=== PATIENT | female | born 1965 | race Caucasian/White ===

== ENCOUNTER 2019-03-02 00:40 | Inpatient (IN) ==
[2019-03-02] MEDS ORDERED: D5% in Water 1,000 ML IVC PRN (02:40)
[2019-03-02] MEDS ORDERED: Dextrose Gel 15 GM/37.5 ML TUBE PO PRN ×2 (02:40)
[2019-03-02] MEDS ORDERED: *HR* Dextrose 50 % in Water (Syg) 50 ML SYRINGE IVP PRN (02:40)
[2019-03-02] MEDS: Acetaminophen 325 MG TABLET PO PRN ×2 (02:48→12:28)
[2019-03-02] MEDS ORDERED: Insulin LISPRO 300 UNITS/3 ML VIAL SQ ONE (02:52)
[2019-03-02] MEDS ORDERED: Naloxone 0.4 MG/ML INJ IVP PRN (02:55)
[2019-03-02] MEDS ORDERED: Ondansetron 4 MG/2 ML VIAL IVP PRN (03:01)
[2019-03-02] MEDS: 0.9 % Sodium Chloride 1,000 ML IVC SCH ×2 (03:13→12:29)
[2019-03-02 04:59] LABS: Hematocrit 31.9 % (35.3-44.9); Mean Corpuscular HGB Conc 34.5 g/dL (31.6-35.5); Mean Corpuscular Hemoglobin 29.9 pg (28.0-33.3); Mean Corpuscular Volume 86.7 fL (83.0-100.0); Platelet Count 165 K/mcL (140-400); Red Blood Count 3.68 M/mcL (3.82-4.97); Red Cell Distribution Width 13.3 % (11.5-14.5); White Blood Count 8.7 K/mcL (4.3-11.1)
[2019-03-02 05:06] LABS: Calcium 8.7 mg/dL (8.6-10.3); Magnesium 1.5 mg/dL (1.6-2.6); Phosphorous 2.8 mg/dL (2.7-4.5); Potassium 3.2 mEq/L (3.5-5.1)
[2019-03-02] MEDS: Insulin LISPRO 300 UNITS/3 ML VIAL SQ SCH ×4 (08:12→21:06)
[2019-03-02] MEDS ORDERED: Isovue-370 500 ML BOTTLE IVP ONE (16:45)
[2019-03-02] MEDS ORDERED: Methocarbamol 750 MG TABLET PO PRN (17:46)
[2019-03-02] MEDS ORDERED: Fluticasone Propionate Nasal 50 MCG/SPRAY BOTTLE NS PRN (17:46)
[2019-03-02] MEDS ORDERED: 0.9 % Sodium Chloride 1,000 ML IVC SCH ×2 (18:30→21:30)
[2019-03-02] MEDS: risperiDONE 1 MG TABLET PO SCH (21:03)
[2019-03-02] MEDS: Gabapentin 400 MG CAPSULE PO SCH (21:03)
[2019-03-02] MEDS: Insulin DETEMIR 100 UNIT/ML X5UNITS SQ SCH (21:04)
[2019-03-03 03:01] LABS: Basophils # 0.1 K/mcL (0.0-0.2); Basophils % 0.8 %; Eosinophils % 0.7 %; Hematocrit 32.6 % (35.3-44.9); Hemoglobin 10.9 g/dL (11.5-15.4); Immature Granulocytes % 1.2 % (0-4); Lymphocytes # 1.8 K/mcL (0.6-4.6); Lymphocytes % 29.1 %; Mean Corpuscular HGB Conc 33.4 g/dL (31.6-35.5); Mean Corpuscular Hemoglobin 30.1 pg (28.0-33.3); Mean Corpuscular Volume 90.1 fL (83.0-100.0); Mean Platelet Volume 9.5 fL (9.4-12.4); Monocytes # 0.6 K/mcL (0.0-1.3); Monocytes % 9.4 %; Neutrophils # 3.6 K/mcL (1.6-8.9); Nucleated Red Blood Cells 0.3 /100 WBC (0); Platelet Count 149 K/mcL (140-400); Red Blood Count 3.62 M/mcL (3.82-4.97); Red Cell Distribution Width 13.5 % (11.5-14.5); Segmented Neutrophils % 58.8 %
[2019-03-03 03:24] LABS: Calcium 8.6 mg/dL (8.6-10.3); Potassium 3.7 mEq/L (3.5-5.1)
[2019-03-03] MEDS: Gabapentin 400 MG CAPSULE PO SCH ×3 (08:41→20:02)
[2019-03-03] MEDS: risperiDONE 0.25 MG TABLET PO SCH (08:41)
[2019-03-03] MEDS: Furosemide 20 MG TABLET PO SCH (08:42)
[2019-03-03] MEDS: Insulin LISPRO 300 UNITS/3 ML VIAL SQ SCH ×5 (08:46→23:18)
[2019-03-03] MEDS: Insulin DETEMIR 100 UNIT/ML X5UNITS SQ SCH ×2 (08:46→23:17)
[2019-03-03] MEDS: Acetaminophen 325 MG TABLET PO PRN ×2 (08:55→20:02)
[2019-03-03] MEDS: Nitroglycerin 0.2 MG PATCH.TD24 TD SCH (11:49)
[2019-03-03] MEDS ORDERED: Albuterol 2.5 MG/3 ML NEBULIZER IH PRN (13:04)
[2019-03-03 13:26] LABS: Bilirubin,Urine Negative (Negative); Blood,Urine Negative (Negative); Clarity,Urine Clear (Clear); Color,Urine Yellow (Yellow); Glucose,Urine (UA) Normal (Normal); Ketones,Urine Negative (Negative); Leukocyte Esterase,Urine Trace (Negative); Nitrite,Urine Negative (Negative); Protein,Urine Trace mg/dL (Neg-Trace); Specific Gravity,Urine 1.015 (1.010-1.025); Urobilinogen,Urine Normal (Normal)
[2019-03-03 13:27] LABS: Bacteria,Urine Few per hpf (None-Few); Hyaline Casts,Urine None Seen per lpf (None-Few); RBC,Urine 0-3 per hpf (0-3); Squamous Epithelial Cell,Urine Many per lpf (None-Few)
[2019-03-03] MEDS: Ipratropium/Albuterol Neb 3 ML IH SCH ×3 (15:31→23:53)
[2019-03-03] MEDS: predniSONE 20 MG TABLET PO SCH (15:38)
[2019-03-03] MEDS: hydroCHLOROthiazide 25 MG TABLET PO SCH (15:38)
[2019-03-03] MEDS: Lisinopril 20 MG TABLET PO SCH (15:38)
[2019-03-03] MEDS: risperiDONE 1 MG TABLET PO SCH (17:15)
[2019-03-04] MEDS: Ipratropium/Albuterol Neb 3 ML IH SCH ×5 (03:37→19:51)
[2019-03-04 04:53] LABS: Basophils % 0.5 %; Hematocrit 32.5 % (35.3-44.9); Hemoglobin 10.7 g/dL (11.5-15.4); Lymphocytes # 1.8 K/mcL (0.6-4.6); Lymphocytes % 23.9 %; Mean Corpuscular HGB Conc 32.9 g/dL (31.6-35.5); Mean Corpuscular Hemoglobin 29.2 pg (28.0-33.3); Mean Corpuscular Volume 88.6 fL (83.0-100.0); Mean Platelet Volume 9.7 fL (9.4-12.4); Monocytes # 0.4 K/mcL (0.0-1.3); Monocytes % 5.3 %; Platelet Count 155 K/mcL (140-400); Red Blood Count 3.67 M/mcL (3.82-4.97); Red Cell Distribution Width 13.5 % (11.5-14.5); Segmented Neutrophils % 68.3 %; White Blood Count 7.3 K/mcL (4.3-11.1)
[2019-03-04 05:12] LABS: Calcium 9.2 mg/dL (8.6-10.3)
[2019-03-04] MEDS: Insulin LISPRO 300 UNITS/3 ML VIAL SQ SCH ×5 (10:38→21:58)
[2019-03-04] MEDS: Lisinopril 20 MG TABLET PO SCH (10:38)
[2019-03-04] MEDS: Gabapentin 400 MG CAPSULE PO SCH ×3 (10:39→20:52)
[2019-03-04] MEDS: predniSONE 20 MG TABLET PO SCH (10:39)
[2019-03-04] MEDS: hydroCHLOROthiazide 25 MG TABLET PO SCH (10:39)
[2019-03-04] MEDS: Furosemide 20 MG TABLET PO SCH (10:39)
[2019-03-04] MEDS: risperiDONE 0.25 MG TABLET PO SCH (10:39)
[2019-03-04] MEDS: Nitroglycerin 0.2 MG PATCH.TD24 TD SCH (10:39)
[2019-03-04 10:55] LABS: Estimated Average Glucose 229 mg/dl
[2019-03-04] MEDS ORDERED: Insulin LISPRO 300 UNITS/3 ML VIAL SQ SCH (11:30)
[2019-03-04] MEDS: Insulin DETEMIR 100 UNIT/ML X5UNITS SQ SCH (12:29)
[2019-03-04] MEDS ORDERED: *HR* Insulin Regular U-500 500 UNIT/ML SQ SCH (16:30)
[2019-03-04] MEDS: risperiDONE 1 MG TABLET PO SCH (17:36)
[2019-03-05] MEDS: Ipratropium/Albuterol Neb 3 ML IH SCH ×4 (00:18→11:08)
[2019-03-05 07:08] LABS: Hematocrit 31.8 % (35.3-44.9); Hemoglobin 10.9 g/dL (11.5-15.4); Mean Corpuscular HGB Conc 34.3 g/dL (31.6-35.5); Mean Corpuscular Hemoglobin 29.5 pg (28.0-33.3); Mean Corpuscular Volume 85.9 fL (83.0-100.0); Mean Platelet Volume 9.7 fL (9.4-12.4); Platelet Count 197 K/mcL (140-400); Red Cell Distribution Width 13.4 % (11.5-14.5)
[2019-03-05 07:30] LABS: BUN/Creatinine Ratio 21 (6-26); Blood Urea Nitrogen 23 mg/dL (6-20); Calcium 9.6 mg/dL (8.6-10.3); Carbon Dioxide 26 mEq/L (23-29); Chloride 100 mEq/L (98-107); Potassium 3.4 mEq/L (3.5-5.1); Sodium 138 mEq/L (136-145); eGFR For African Americans > 60 (> 60); eGFR For Non-African Americans 54 (> 60)
[2019-03-05] MEDS ORDERED: *HR* Insulin Regular U-500 500 UNIT/ML SQ SCH ×2 (07:30→12:00)
[2019-03-05 07:53] VITALS: BP 161/102
[2019-03-05 08:16] LABS: Glucose 193 mg/dL (70-105); Osmolality,Calculated 295 (280-300)
[2019-03-05] MEDS: Gabapentin 400 MG CAPSULE PO SCH (08:46)
[2019-03-05] MEDS: predniSONE 20 MG TABLET PO SCH (08:46)
[2019-03-05] MEDS: Furosemide 20 MG TABLET PO SCH (08:47)
[2019-03-05] MEDS: hydroCHLOROthiazide 25 MG TABLET PO SCH (08:47)
[2019-03-05] MEDS: risperiDONE 0.25 MG TABLET PO SCH (08:47)
[2019-03-05] MEDS: Lisinopril 20 MG TABLET PO SCH (08:47)
[2019-03-05] MEDS: Nitroglycerin 0.2 MG PATCH.TD24 TD SCH (08:47)
== END 2019-03-05 14:13 | disposition home or self-care (01) | DRG 140 ==
LOC: 2NENU → SUATTDRO 02:01
PROVIDERS: ADMIT Internal Medicine; ATTEND Family Medicine

== ENCOUNTER 2019-04-23 12:21 | Observation (INO) ==
[2019-04-23 13:16] LABS: Basophils # 0.1 K/mcL (0.0-0.2); Basophils % 0.7 %; Eosinophils # 0.2 K/mcL (0.0-0.6); Eosinophils % 2.4 %; Hematocrit 36.7 % (35.3-44.9); Hemoglobin 12.6 g/dL (11.5-15.4); Immature Granulocytes % 1.4 % (0-4); Lymphocytes # 2.6 K/mcL (0.6-4.6); Lymphocytes % 36.2 %; Mean Corpuscular HGB Conc 34.3 g/dL (31.6-35.5); Mean Corpuscular Hemoglobin 29.8 pg (28.0-33.3); Mean Corpuscular Volume 86.8 fL (83.0-100.0); Mean Platelet Volume 10.2 fL (9.4-12.4); Monocytes # 0.3 K/mcL (0.0-1.3); Monocytes % 4.8 %; Neutrophils # 3.9 K/mcL (1.6-8.9); Platelet Count 151 K/mcL (140-400); Red Blood Count 4.23 M/mcL (3.82-4.97); Red Cell Distribution Width 13.7 % (11.5-14.5); Segmented Neutrophils % 54.5 %; White Blood Count 7.1 K/mcL (4.3-11.1)
[2019-04-23 13:46] LABS: Albumin 4.2 g/dL (3.5-5.7); Albumin/Globulin Ratio 1.2 (1.1-2.2); Bilirubin,Direct 0.1 mg/dL (0.0-0.2); Bilirubin,Indirect 0.3 mg/dL (0.0-1.0); Bilirubin,Total 0.4 mg/dL (0.3-1.0); Calcium 9.8 mg/dL (8.6-10.3); Globulin 3.4 g/dL (2.4-3.5); Potassium 3.4 mEq/L (3.5-5.1); Total Protein 7.6 g/dL (6.4-8.9)
[2019-04-23] MEDS: 0.9 % Sodium Chloride 1,000 ML IVC SCH ×2 (14:09→15:15)
[2019-04-23 14:11] LABS: Bilirubin,Urine Negative (Negative); Blood,Urine Negative (Negative); Clarity,Urine Clear (Clear); Color,Urine Yellow (Yellow); Glucose,Urine (UA) >=1000 mg/dL (Normal); Ketones,Urine Negative (Negative); Leukocyte Esterase,Urine Negative (Negative); Nitrite,Urine Negative (Negative); PH,Urine 6.5 pH Units (5.0-8.0); Protein,Urine Negative (Neg-Trace); Specific Gravity,Urine 1.026 (1.010-1.025); Urobilinogen,Urine Normal (Normal)
[2019-04-23 14:34] LABS: VBG HCO3 28 mEq/L (21-27); VBG PCO2 53 mmHg (41-51); VBG PH 7.34 pH Units (7.32-7.42); VBG PO2 74 mmHg (25-50)
[2019-04-23 14:44] LABS: Magnesium 1.9 mg/dL (1.6-2.6)
[2019-04-23] MEDS ORDERED: Insulin Regular, Human 100 UNIT/ML SQ ONE (15:18)
[2019-04-23] MEDS ORDERED: *HR* HYDROcodone/Acet 5/325 mg TABLET PO PRN (15:35)
[2019-04-23] MEDS ORDERED: Naloxone 0.4 MG/ML INJ IVP PRN (15:35)
[2019-04-23] MEDS ORDERED: Dextrose Gel 15 GM/37.5 ML TUBE PO PRN ×2 (15:39)
[2019-04-23] MEDS ORDERED: D5% in Water 1,000 ML IVC PRN (15:39)
[2019-04-23] MEDS ORDERED: *HR* Dextrose 50 % in Water (Syg) 50 ML SYRINGE IVP PRN (15:39)
[2019-04-23] MEDS ORDERED: Fluticasone Propionate Nasal 50 MCG/SPRAY BOTTLE NS PRN (15:41)
[2019-04-23] MEDS ORDERED: Methocarbamol 750 MG TABLET PO PRN (15:41)
[2019-04-23] MEDS ORDERED: Ipratropium/Albuterol Neb 3 ML IH PRN (15:42)
[2019-04-23] MEDS: *HR* Heparin 5,000 UNIT/ML VIAL SQ SCH (17:48)
[2019-04-23] MEDS: risperiDONE 1 MG TABLET PO SCH (17:49)
[2019-04-23] MEDS: *HR* Buprenorphine HCl 8 MG TAB.SUBL SL SCH (17:49)
[2019-04-23] MEDS: Insulin LISPRO 300 UNITS/3 ML VIAL SQ SCH (17:52)
[2019-04-23] MEDS: Nitroglycerin 0.2 MG PATCH.TD24 TD SCH (19:05)
[2019-04-23 19:07] LABS: Calcium 9.1 mg/dL (8.6-10.3); Potassium 3.4 mEq/L (3.5-5.1)
[2019-04-23] MEDS: Gabapentin 400 MG CAPSULE PO SCH (20:59)
[2019-04-23] MEDS ORDERED: NON-FORMULARY MEDICATION 1 EACH EACH (Buprenorphine Hcl/Naloxone Hcl [Suboxone 8 Mg-2 Mg S SL SCH (21:00)
[2019-04-23] MEDS ORDERED: Insulin DETEMIR 100 UNIT/ML X5UNITS SQ SCH (21:00)
[2019-04-23] MEDS: 0.9 % Sodium Chloride w KCl 40 MEQ/1,000 ML MLS IVC SCH (21:38)
[2019-04-24] MEDS: *HR* Heparin 5,000 UNIT/ML VIAL SQ SCH ×2 (05:48→18:30)
[2019-04-24] MEDS: *HR* Buprenorphine HCl 8 MG TAB.SUBL SL SCH ×2 (05:48→18:30)
[2019-04-24] MEDS: FLUoxetine 20 MG CAPSULE PO SCH (07:36)
[2019-04-24] MEDS: risperiDONE 0.25 MG TABLET PO SCH (07:36)
[2019-04-24] MEDS: Gabapentin 400 MG CAPSULE PO SCH ×3 (07:36→20:05)
[2019-04-24] MEDS: Insulin LISPRO 300 UNITS/3 ML VIAL SQ SCH ×7 (07:37→16:06)
[2019-04-24] MEDS: Nitroglycerin 0.2 MG PATCH.TD24 TD SCH (07:40)
[2019-04-24] MEDS: 0.9 % Sodium Chloride w KCl 40 MEQ/1,000 ML MLS IVC SCH (07:42)
[2019-04-24 07:45] LABS: Basophils # 0.1 K/mcL (0.0-0.2); Basophils % 0.8 %; Eosinophils # 0.2 K/mcL (0.0-0.6); Eosinophils % 2.6 %; Hematocrit 32.5 % (35.3-44.9); Lymphocytes # 2.5 K/mcL (0.6-4.6); Lymphocytes % 40.2 %; Mean Corpuscular HGB Conc 33.2 g/dL (31.6-35.5); Mean Corpuscular Hemoglobin 29.6 pg (28.0-33.3); Monocytes # 0.4 K/mcL (0.0-1.3); Monocytes % 5.8 %; Neutrophils # 3.1 K/mcL (1.6-8.9); Platelet Count 146 K/mcL (140-400); Red Blood Count 3.65 M/mcL (3.82-4.97); Red Cell Distribution Width 13.9 % (11.5-14.5); Segmented Neutrophils % 49.6 %; White Blood Count 6.2 K/mcL (4.3-11.1)
[2019-04-24 07:46] LABS: Hemoglobin 10.8 g/dL (11.5-15.4)
[2019-04-24 08:01] LABS: Calcium 8.6 mg/dL (8.6-10.3); Potassium 3.7 mEq/L (3.5-5.1)
[2019-04-24 08:02] LABS: Magnesium 1.9 mg/dL (1.6-2.6); Phosphorous 3.4 mg/dL (2.7-4.5)
[2019-04-24] MEDS ORDERED: Insulin DETEMIR 100 UNIT/ML X5UNITS SQ SCH ×2 (09:00→21:00)
[2019-04-24] MEDS: hydrALAZINE 25 MG TABLET PO SCH ×2 (11:50→16:05)
[2019-04-24] MEDS: risperiDONE 1 MG TABLET PO SCH (18:30)
[2019-04-24] MEDS ORDERED: Acetaminophen 325 MG TABLET PO ONE (20:46)
[2019-04-24] MEDS: traZODone 50 MG TABLET PO PRN (20:58)
[2019-04-25] MEDS: hydrALAZINE 25 MG TABLET PO SCH ×3 (00:04→14:36)
[2019-04-25] MEDS: *HR* Heparin 5,000 UNIT/ML VIAL SQ SCH ×2 (05:35→16:21)
[2019-04-25] MEDS: *HR* Buprenorphine HCl 8 MG TAB.SUBL SL SCH ×2 (05:35→16:21)
[2019-04-25 05:59] LABS: Calcium 8.8 mg/dL (8.6-10.3); Magnesium 2.1 mg/dL (1.6-2.6); Phosphorous 2.6 mg/dL (2.7-4.5); Potassium 3.7 mEq/L (3.5-5.1)
[2019-04-25] MEDS: Nitroglycerin 0.2 MG PATCH.TD24 TD SCH (08:18)
[2019-04-25] MEDS: risperiDONE 0.25 MG TABLET PO SCH (08:18)
[2019-04-25] MEDS: Gabapentin 400 MG CAPSULE PO SCH ×3 (08:19→20:06)
[2019-04-25] MEDS: Insulin LISPRO 300 UNITS/3 ML VIAL SQ SCH ×6 (08:19→16:22)
[2019-04-25] MEDS: FLUoxetine 20 MG CAPSULE PO SCH (08:19)
[2019-04-25] MEDS: Insulin DETEMIR 100 UNIT/ML X5UNITS SQ SCH ×2 (09:00→20:07)
[2019-04-25] MEDS: Acetaminophen 325 MG TABLET PO PRN (14:36)
[2019-04-25] MEDS: risperiDONE 1 MG TABLET PO SCH (16:21)
[2019-04-25] MEDS: traZODone 50 MG TABLET PO PRN (20:15)
[2019-04-26] MEDS: hydrALAZINE 25 MG TABLET PO SCH ×4 (00:10→23:25)
[2019-04-26 05:54] LABS: Calcium 8.5 mg/dL (8.6-10.3); Magnesium 1.9 mg/dL (1.6-2.6); Phosphorous 3.2 mg/dL (2.7-4.5); Potassium 3.8 mEq/L (3.5-5.1)
[2019-04-26] MEDS: *HR* Buprenorphine HCl 8 MG TAB.SUBL SL SCH ×2 (05:59→17:42)
[2019-04-26] MEDS: *HR* Heparin 5,000 UNIT/ML VIAL SQ SCH ×2 (05:59→17:42)
[2019-04-26] MEDS: FLUoxetine 20 MG CAPSULE PO SCH (07:26)
[2019-04-26] MEDS: Loratadine 10 MG TABLET PO SCH (07:26)
[2019-04-26] MEDS: Gabapentin 400 MG CAPSULE PO SCH ×3 (07:27→20:20)
[2019-04-26] MEDS: Cholecalciferol (D-3) 1,000 UNIT (25MCG) TABLET PO SCH (07:27)
[2019-04-26] MEDS: risperiDONE 0.25 MG TABLET PO SCH (07:27)
[2019-04-26] MEDS: Insulin DETEMIR 100 UNIT/ML X5UNITS SQ SCH (07:28)
[2019-04-26] MEDS: Insulin LISPRO 300 UNITS/3 ML VIAL SQ SCH ×10 (07:28→23:26)
[2019-04-26] MEDS: Nitroglycerin 0.2 MG PATCH.TD24 TD SCH (07:28)
[2019-04-26] MEDS: Lisinopril 20 MG TABLET PO SCH (09:27)
[2019-04-26] MEDS: Furosemide 20 MG TABLET PO SCH (11:20)
[2019-04-26] MEDS: Acetaminophen 325 MG TABLET PO PRN ×2 (12:46→19:50)
[2019-04-26] MEDS: risperiDONE 1 MG TABLET PO SCH (17:42)
[2019-04-26] MEDS: traZODone 50 MG TABLET PO PRN (19:49)
[2019-04-26] MEDS ORDERED: Insulin DETEMIR 100 UNIT/ML X5UNITS SQ SCH (21:00)
[2019-04-27] MEDS: Insulin LISPRO 300 UNITS/3 ML VIAL SQ SCH ×3 (04:22→09:09)
[2019-04-27 04:46] LABS: Calcium 8.8 mg/dL (8.6-10.3); Phosphorous 3.2 mg/dL (2.7-4.5); Potassium 3.6 mEq/L (3.5-5.1)
[2019-04-27] MEDS: *HR* Buprenorphine HCl 8 MG TAB.SUBL SL SCH (06:19)
[2019-04-27] MEDS: *HR* Heparin 5,000 UNIT/ML VIAL SQ SCH (06:19)
[2019-04-27 07:26] VITALS: BP 141/85
[2019-04-27] MEDS: Loratadine 10 MG TABLET PO SCH (09:10)
[2019-04-27] MEDS: Gabapentin 400 MG CAPSULE PO SCH (09:10)
[2019-04-27] MEDS: Cholecalciferol (D-3) 1,000 UNIT (25MCG) TABLET PO SCH (09:11)
[2019-04-27] MEDS: Lisinopril 20 MG TABLET PO SCH (09:11)
[2019-04-27] MEDS: FLUoxetine 20 MG CAPSULE PO SCH (09:11)
[2019-04-27] MEDS: Furosemide 20 MG TABLET PO SCH (09:11)
[2019-04-27] MEDS: hydrALAZINE 25 MG TABLET PO SCH (09:11)
[2019-04-27] MEDS: risperiDONE 0.25 MG TABLET PO SCH (09:12)
[2019-04-27] MEDS: Nitroglycerin 0.2 MG PATCH.TD24 TD SCH (09:12)
== END 2019-04-27 14:16 | disposition home or self-care (01) ==
LOC: EMEROOARM 12:21 → 3BNU 12:21 → SUATTDRO 16:27 → 3BNU 17:13
PROVIDERS: ADMIT Internal Medicine; ATTEND Internal Medicine

== ENCOUNTER 2019-08-14 05:46 | Observation (INO) ==
[2019-08-14] MEDS ORDERED: Naloxone 0.4 MG/ML INJ IVP PRN (07:47)
[2019-08-14] MEDS ORDERED: Ondansetron 4 MG/2 ML VIAL IVP PRN (07:47)
[2019-08-14 09:00] LABS: VBG HCO3 23 mEq/L (21-27); VBG PCO2 45 mmHg (41-51); VBG PH 7.32 pH Units (7.32-7.42); VBG PO2 79 mmHg (25-50)
[2019-08-14 09:18] LABS: BUN/Creatinine Ratio 17 (6-26); Blood Urea Nitrogen 51 mg/dL (6-20); Calcium 8.1 mg/dL (8.6-10.3); Carbon Dioxide 20 mEq/L (23-29); Chloride 100 mEq/L (98-107); Glucose 332 mg/dL (70-105); Magnesium 1.7 mg/dL (1.6-2.6); Osmolality,Calculated 305 (280-300); Phosphorous 3.8 mg/dL (2.7-4.5); Potassium 3.4 mEq/L (3.5-5.1); Sodium 134 mEq/L (136-145); Troponin I < 0.03 ng/mL (< 0.04); eGFR For African Americans 19 (> 60); eGFR For Non-African Americans 16 (> 60)
[2019-08-14] MEDS: 0.9 % Sodium Chloride 1,000 ML IVC SCH ×2 (10:12→22:32)
[2019-08-14] MEDS ORDERED: *HR* Dextrose 50 % in Water (Syg) 50 ML SYRINGE IVP PRN (10:40)
[2019-08-14] MEDS ORDERED: D5% in Water 1,000 ML IVC PRN (10:40)
[2019-08-14] MEDS ORDERED: Dextrose Gel 15 GM/37.5 ML TUBE PO PRN ×2 (10:40)
[2019-08-14] MEDS ORDERED: traZODone 50 MG TABLET PO PRN (11:05)
[2019-08-14 11:33] LABS: Bilirubin,Urine Negative (Negative); Blood,Urine Negative (Negative); Clarity,Urine Clear (Clear); Color,Urine Yellow (Yellow); Glucose,Urine (UA) 250 mg/dL (Normal); Ketones,Urine Negative (Negative); Leukocyte Esterase,Urine Negative (Negative); Nitrite,Urine Negative (Negative); Protein,Urine Trace mg/dL (Neg-Trace); Specific Gravity,Urine 1.017 (1.010-1.025); Urobilinogen,Urine Normal (Normal)
[2019-08-14] MEDS: Gabapentin 300 MG CAPSULE PO SCH (11:58)
[2019-08-14] MEDS: Insulin LISPRO 300 UNITS/3 ML VIAL SQ SCH ×4 (11:58→17:20)
[2019-08-14] MEDS: Insulin DETEMIR 100 UNIT/ML X5UNITS SQ SCH ×2 (11:59→21:11)
[2019-08-14] MEDS: Acetaminophen 325 MG TABLET PO PRN ×2 (15:59→22:10)
[2019-08-14] MEDS: *HR* Heparin 5,000 UNIT/ML VIAL SQ SCH (17:19)
[2019-08-14] MEDS: risperiDONE 1 MG TABLET PO SCH (21:11)
[2019-08-14] MEDS: Buprenorphine Hcl/Naloxone Hcl [Suboxone 8 Mg-2 Mg S SL SCH (21:13)
[2019-08-15] MEDS: *HR* Heparin 5,000 UNIT/ML VIAL SQ SCH (04:17)
[2019-08-15] MEDS: Insulin DETEMIR 100 UNIT/ML X5UNITS SQ SCH (07:14)
[2019-08-15] MEDS: Gabapentin 300 MG CAPSULE PO SCH (07:14)
[2019-08-15] MEDS: Acetaminophen 325 MG TABLET PO PRN (07:14)
[2019-08-15] MEDS: risperiDONE 1 MG TABLET PO SCH (07:14)
[2019-08-15] MEDS: Insulin LISPRO 300 UNITS/3 ML VIAL SQ SCH ×4 (07:14→11:53)
[2019-08-15] MEDS ORDERED: FLUoxetine 20 MG CAPSULE PO SCH (09:00)
[2019-08-15 09:28] LABS: Basophils % 0.6 %; Eosinophils # 0.1 K/mcL (0.0-0.6); Eosinophils % 2.5 %; Hematocrit 29.6 % (35.3-44.9); Hemoglobin 9.6 g/dL (11.5-15.4); Lymphocytes # 1.8 K/mcL (0.6-4.6); Lymphocytes % 38.3 %; Mean Corpuscular HGB Conc 32.4 g/dL (31.6-35.5); Mean Corpuscular Hemoglobin 29.4 pg (28.0-33.3); Mean Corpuscular Volume 90.8 fL (83.0-100.0); Mean Platelet Volume 10.3 fL (9.4-12.4); Monocytes # 0.3 K/mcL (0.0-1.3); Monocytes % 6.7 %; Neutrophils # 2.4 K/mcL (1.6-8.9); Platelet Count 162 K/mcL (140-400); Red Blood Count 3.26 M/mcL (3.82-4.97); Red Cell Distribution Width 13.6 % (11.5-14.5); Segmented Neutrophils % 50.9 %; White Blood Count 4.8 K/mcL (4.3-11.1)
[2019-08-15 09:41] LABS: Calcium 8.6 mg/dL (8.6-10.3); Potassium 3.5 mEq/L (3.5-5.1)
[2019-08-15] MEDS ORDERED: Tiotropium 18 MCG inhalation IH SCH (10:00)
[2019-08-15 11:41] VITALS: BP 120/80
[2019-08-15] MEDS: Buprenorphine Hcl/Naloxone Hcl [Suboxone 8 Mg-2 Mg S SL SCH (11:54)
== END 2019-08-15 14:13 | disposition home or self-care (01) ==
LOC: 2ANU → SUATTDRO 06:59
PROVIDERS: ADMIT Family Medicine; ATTEND Internal Medicine

== ENCOUNTER 2019-10-22 22:25 | Observation (INO) ==
[2019-10-23] MEDS ORDERED: Naloxone 0.4 MG/ML INJ IVP PRN (00:52)
[2019-10-23] MEDS ORDERED: Ondansetron 4 MG/2 ML VIAL IVP PRN (00:52)
[2019-10-23] MEDS ORDERED: Ringers Solution, Lactated 1,000 ML IVC SCH (01:00)
[2019-10-23] MEDS ORDERED: *HR* OxyCODONE/APAP 5/325 TABLET PO PRN (01:22)
[2019-10-23] MEDS ORDERED: *HR* OxyCODONE/APAP 10/325 TABLET PO PRN (01:22)
[2019-10-23] MEDS ORDERED: *HR* Dextrose 50 % in Water (Vial) 50 ML VIAL IVP PRN (02:46)
[2019-10-23] MEDS ORDERED: Dextrose Gel 15 GM/37.5 ML TUBE PO PRN ×2 (02:46)
[2019-10-23] MEDS ORDERED: D5% in Water 1,000 ML IVC PRN (02:46)
[2019-10-23] MEDS: Insulin LISPRO 300 UNITS/3 ML VIAL SQ SCH ×2 (05:59→13:32)
[2019-10-23] MEDS ORDERED: Cefepime HCl 1,000 MG in Water for inj. (sterile) 10 ML IVP SCH (06:00)
[2019-10-23] MEDS ORDERED: Furosemide 20 MG TABLET PO SCH (09:00)
[2019-10-23 10:46] VITALS: BP 150/91
[2019-10-23 10:50] LABS: Bacteria,Urine Few per hpf (None-Few); Bilirubin,Urine Negative (Negative); Blood,Urine Negative (Negative); Clarity,Urine Clear (Clear); Color,Urine Light-Yellow (Yellow); Glucose,Urine (UA) 500 mg/dL (Normal); Ketones,Urine Negative (Negative); Leukocyte Esterase,Urine Negative (Negative); Nitrite,Urine Negative (Negative); Protein,Urine Trace mg/dL (Neg-Trace); RBC,Urine 0-3 per hpf (0-3); Specific Gravity,Urine 1.015 (1.010-1.025); Urobilinogen,Urine Normal (Normal); WBC,Urine 0-3 per hpf (0-3)
[2019-10-23 11:38] LABS: Basophils # 0.1 K/mcL (0.0-0.2); Eosinophils # 0.6 K/mcL (0.0-0.6); Eosinophils % 7.2 %; Hematocrit 33.7 % (35.3-44.9); Hemoglobin 11.2 g/dL (11.5-15.4); Immature Granulocytes % 3.4 % (0-4); Lymphocytes # 2.2 K/mcL (0.6-4.6); Lymphocytes % 26.5 %; Mean Corpuscular HGB Conc 33.2 g/dL (31.6-35.5); Mean Corpuscular Hemoglobin 28.7 pg (28.0-33.3); Mean Corpuscular Volume 86.4 fL (83.0-100.0); Mean Platelet Volume 9.8 fL (9.4-12.4); Monocytes # 0.5 K/mcL (0.0-1.3); Monocytes % 6.2 %; Neutrophils # 4.6 K/mcL (1.6-8.9); Platelet Count 160 K/mcL (140-400); Red Cell Distribution Width 12.8 % (11.5-14.5); Segmented Neutrophils % 55.7 %; White Blood Count 8.3 K/mcL (4.3-11.1)
[2019-10-23 11:47] LABS: Prothrombin Time 11.5 Seconds (9.4-12.1)
[2019-10-23 11:57] LABS: Alanine Aminotransferase 15 Units/L (7-52); Albumin 3.8 g/dL (3.5-5.7); Albumin/Globulin Ratio 1.1 (1.1-2.2); Alkaline Phosphatase 117 Units/L (34-104); Aspartate Amino Transferase 20 Units/L (13-39); BUN/Creatinine Ratio 17 (6-26); Bilirubin,Total 0.3 mg/dL (0.3-1.0); Blood Urea Nitrogen 25 mg/dL (6-20); Calcium 9.2 mg/dL (8.6-10.3); Carbon Dioxide 26 mEq/L (23-29); Chloride 100 mEq/L (98-107); Chol/HDL Ratio 6.7 (0-4.9); Cholesterol 214 mg/dL (< 200); Globulin 3.4 g/dL (2.4-3.5); Glucose 300 mg/dL (70-105); HDL Cholesterol 32 mg/dL (40-59); Magnesium 1.8 mg/dL (1.6-2.6); Osmolality,Calculated 298 (280-300); Phosphorous 2.5 mg/dL (2.7-4.5); Potassium 3.6 mEq/L (3.5-5.1); Sodium 136 mEq/L (136-145); Total Protein 7.2 g/dL (6.4-8.9); Triglycerides 823 mg/dL (< 150); eGFR For African Americans 46 (> 60); eGFR For Non-African Americans 38 (> 60)
[2019-10-23] MEDS ORDERED: Aminoglycoside Consult 1 EACH MC ONE (14:50)
[2019-10-23] MEDS ORDERED: Insulin DETEMIR 100 UNIT/ML X5UNITS SQ SCH (21:00)
[2019-10-23] MEDS ORDERED: Vancomycin 1,250 MG/262.5 ML IV.SOLN IVPB SCH (21:00)
== END 2019-10-23 14:51 | disposition home or self-care (01) ==
LOC: 3ANU
PROVIDERS: ADMIT Internal Medicine; ATTEND Internal Medicine

== ENCOUNTER 2019-12-22 22:13 | Inpatient (IN) ==
[2019-12-23 01:24] LABS: Adenovirus Not Detected (Not Detect); Coronavirus 229E Not Detected (Not Detect); Coronavirus HKU1 Not Detected (Not Detect); Coronavirus NL63 Not Detected (Not Detect); Coronavirus OC43 Not Detected (Not Detect)
[2019-12-23 01:25] LABS: Bordetella Pertussis Not Detected (Not Detect); Chlamydophila pneumoniae Not Detected (Not Detect); Human Metapneumovirus Not Detected (Not Detect); Human Rhinovirus/Enterovirus Not Detected (Not Detect); Influenza A Subtype 2009 H1 Not Detected (Not Detect); Influenza B Not Detected (Not Detect); Mycoplasma pneumoniae Not Detected (Not Detect); Parainfluenza Virus 1 Not Detected (Not Detect); Parainfluenza Virus 2 Not Detected (Not Detect); Parainfluenza Virus 3 Not Detected (Not Detect); Parainfluenza Virus 4 Not Detected (Not Detect); Respiratory Syncytial Virus Not Detected (Not Detect); SARS-CoV-2 Not Detected (Not Detect)
[2019-12-23] MEDS ORDERED: *HR* Dextrose 50 % in Water (Vial) 50 ML VIAL IVP PRN ×2 (01:29→07:36)
[2019-12-23] MEDS ORDERED: D5% in 0.45% NACL 1,000 ML IVC PRN (01:29)
[2019-12-23] MEDS ORDERED: Insulin Human Regular 100 UNIT in 0.9 % Sodium Chloride 100 ML IVC SCH (01:30)
[2019-12-23] MEDS: 0.45 % Sodium Chloride w/KCl 20 MEQ/1,000 ML MLS IVC SCH ×3 (02:10→20:01)
[2019-12-23 02:48] LABS: Mean Platelet Volume 10.1 fL (9.4-12.4); Red Blood Count 4.15 M/mcL (3.82-4.97)
[2019-12-23 02:50] LABS: Basophils # 0.1 K/mcL (0.0-0.2); Basophils % 0.7 %; Eosinophils # 0.3 K/mcL (0.0-0.6); Eosinophils % 4.6 %; Hematocrit 35.2 % (35.3-44.9); Hemoglobin 11.7 g/dL (11.5-15.4); Immature Granulocytes % 1.3 % (0-4); Immature Platelets 4.7 % (1.1-6.1); Lymphocytes # 3.4 K/mcL (0.6-4.6); Lymphocytes % 48.9 %; Mean Corpuscular HGB Conc 33.2 g/dL (31.6-35.5); Mean Corpuscular Hemoglobin 28.2 pg (28.0-33.3); Mean Corpuscular Volume 84.8 fL (83.0-100.0); Monocytes # 0.4 K/mcL (0.0-1.3); Monocytes % 5.9 %; Neutrophils # 2.7 K/mcL (1.6-8.9); Platelet Count 139 K/mcL (140-400); Red Cell Distribution Width 12.6 % (11.5-14.5); Segmented Neutrophils % 38.6 %; White Blood Count 6.9 K/mcL (4.3-11.1)
[2019-12-23 02:54] LABS: Albumin 3.6 g/dL (3.5-5.7); Albumin/Globulin Ratio 1.2 (1.1-2.2); Bilirubin,Total 0.4 mg/dL (0.3-1.0); Calcium 9.1 mg/dL (8.6-10.3); Globulin 2.9 g/dL (2.4-3.5); Potassium 3.1 mEq/L (3.5-5.1); Total Protein 6.5 g/dL (6.4-8.9)
[2019-12-23 04:38] LABS: Potassium 3.2 mEq/L (3.5-5.1)
[2019-12-23 06:39] LABS: Calcium 9.2 mg/dL (8.6-10.3); Potassium 3.1 mEq/L (3.5-5.1)
[2019-12-23 07:02] LABS: Estimated Average Glucose 361 mg/dl
[2019-12-23] MEDS ORDERED: traZODone 50 MG TABLET PO PRN (07:31)
[2019-12-23] MEDS ORDERED: Dextrose Gel 15 GM/37.5 ML TUBE PO PRN ×2 (07:36)
[2019-12-23] MEDS ORDERED: D5% in Water 1,000 ML IVC PRN (07:36)
[2019-12-23] MEDS ORDERED: Ondansetron 4 MG/2 ML VIAL IVP PRN (08:10)
[2019-12-23] MEDS: Insulin DETEMIR 100 UNIT/ML X5UNITS SQ SCH ×2 (08:20→20:53)
[2019-12-23] MEDS: FLUoxetine 20 MG CAPSULE PO SCH (08:43)
[2019-12-23] MEDS: Gabapentin 400 MG CAPSULE PO SCH ×3 (08:43→19:42)
[2019-12-23] MEDS: risperiDONE 1 MG TABLET PO SCH ×2 (08:43→19:42)
[2019-12-23] MEDS: Metoprolol 100 MG TABLET PO SCH ×2 (08:44→19:42)
[2019-12-23] MEDS: hydrALAZINE 25 MG TABLET PO SCH ×3 (08:44→19:42)
[2019-12-23] MEDS: (Suboxone 8 Mg-2 Mg) SL SCH ×2 (08:45→20:51)
[2019-12-23] MEDS: Insulin LISPRO 300 UNITS/3 ML VIAL SQ SCH ×3 (11:38→19:42)
[2019-12-23] MEDS ORDERED: Insulin Human Regular 20 UNIT in 0.9 % Sodium Chloride 10 ML IV ONE ×2 (12:28→15:14)
[2019-12-23 17:17] LABS: Potassium 3.4 mEq/L (3.5-5.1)
[2019-12-23] MEDS ORDERED: Insulin LISPRO 300 UNITS/3 ML VIAL SQ ONE (23:08)
[2019-12-24] MEDS ORDERED: Insulin DETEMIR 100 UNIT/ML X5UNITS SQ ONE (00:21)
[2019-12-24] MEDS: 0.45 % Sodium Chloride w/KCl 20 MEQ/1,000 ML MLS IVC SCH ×2 (02:43→05:31)
[2019-12-24] MEDS ORDERED: Insulin LISPRO 300 UNITS/3 ML VIAL SQ ONE (04:31)
[2019-12-24 05:14] LABS: Basophils # 0.1 K/mcL (0.0-0.2); Basophils % 0.7 %; Eosinophils # 0.4 K/mcL (0.0-0.6); Eosinophils % 5.5 %; Hematocrit 34.4 % (35.3-44.9); Hemoglobin 11.4 g/dL (11.5-15.4); Immature Granulocytes % 0.9 % (0-4); Lymphocytes # 3.2 K/mcL (0.6-4.6); Lymphocytes % 42.9 %; Mean Corpuscular HGB Conc 33.1 g/dL (31.6-35.5); Mean Corpuscular Hemoglobin 28.7 pg (28.0-33.3); Mean Corpuscular Volume 86.6 fL (83.0-100.0); Mean Platelet Volume 10.4 fL (9.4-12.4); Monocytes # 0.4 K/mcL (0.0-1.3); Monocytes % 5.7 %; Neutrophils # 3.3 K/mcL (1.6-8.9); Platelet Count 140 K/mcL (140-400); Red Blood Count 3.97 M/mcL (3.82-4.97); Segmented Neutrophils % 44.3 %; White Blood Count 7.5 K/mcL (4.3-11.1)
[2019-12-24 05:31] LABS: Calcium 9.1 mg/dL (8.6-10.3); Magnesium 2.1 mg/dL (1.6-2.6); Phosphorous 3.4 mg/dL (2.7-4.5); Potassium 3.6 mEq/L (3.5-5.1)
[2019-12-24] MEDS: risperiDONE 1 MG TABLET PO SCH ×2 (08:12→20:08)
[2019-12-24] MEDS: FLUoxetine 20 MG CAPSULE PO SCH (08:12)
[2019-12-24] MEDS: Metoprolol 100 MG TABLET PO SCH ×2 (08:12→20:08)
[2019-12-24] MEDS: Insulin LISPRO 300 UNITS/3 ML VIAL SQ SCH ×6 (08:12→19:52)
[2019-12-24] MEDS: Gabapentin 400 MG CAPSULE PO SCH ×3 (08:12→20:08)
[2019-12-24] MEDS: hydrALAZINE 25 MG TABLET PO SCH ×3 (08:12→20:08)
[2019-12-24] MEDS: (Suboxone 8 Mg-2 Mg) SL SCH ×3 (09:56→21:27)
[2019-12-24] MEDS: Insulin DETEMIR 100 UNIT/ML X5UNITS SQ SCH ×3 (09:56→23:45)
[2019-12-24] MEDS: 0.9 % Sodium Chloride 1,000 ML IVC SCH ×2 (10:02→16:38)
[2019-12-24] MEDS ORDERED: Isovue-370 500 ML BOTTLE IVP ONE (12:05)
[2019-12-25] MEDS ORDERED: Insulin LISPRO 300 UNITS/3 ML VIAL SQ ONE (02:09)
[2019-12-25 02:34] LABS: Basophils % 0.6 %; Eosinophils # 0.4 K/mcL (0.0-0.6); Eosinophils % 5.1 %; Hematocrit 37.3 % (35.3-44.9); Hemoglobin 11.8 g/dL (11.5-15.4); Immature Granulocytes % 1.3 % (0-4); Lymphocytes # 2.8 K/mcL (0.6-4.6); Lymphocytes % 40.1 %; Mean Corpuscular HGB Conc 31.6 g/dL (31.6-35.5); Mean Corpuscular Volume 88.6 fL (83.0-100.0); Mean Platelet Volume 10.6 fL (9.4-12.4); Monocytes # 0.4 K/mcL (0.0-1.3); Neutrophils # 3.4 K/mcL (1.6-8.9); Platelet Count 148 K/mcL (140-400); Red Blood Count 4.21 M/mcL (3.82-4.97); Red Cell Distribution Width 13.2 % (11.5-14.5); Segmented Neutrophils % 47.9 %
[2019-12-25 02:57] LABS: Calcium 9.1 mg/dL (8.6-10.3); Magnesium 2.1 mg/dL (1.6-2.6); Phosphorous 3.6 mg/dL (2.7-4.5); Potassium 3.7 mEq/L (3.5-5.1)
[2019-12-25] MEDS: 0.9 % Sodium Chloride 1,000 ML IVC SCH ×2 (04:05→12:56)
[2019-12-25] MEDS ORDERED: Insulin DETEMIR 100 UNIT/ML X5UNITS SQ ONE (04:16)
[2019-12-25] MEDS: *HR* SitaGLIPtin 25 MG TABLET PO SCH (10:01)
[2019-12-25] MEDS: Gabapentin 400 MG CAPSULE PO SCH ×3 (10:01→20:45)
[2019-12-25] MEDS: FLUoxetine 20 MG CAPSULE PO SCH (10:02)
[2019-12-25] MEDS: hydrALAZINE 25 MG TABLET PO SCH ×3 (10:02→20:45)
[2019-12-25] MEDS: risperiDONE 1 MG TABLET PO SCH (10:02)
[2019-12-25] MEDS: Insulin DETEMIR 100 UNIT/ML X5UNITS SQ SCH ×2 (10:03→20:45)
[2019-12-25] MEDS: (Suboxone 8 Mg-2 Mg) SL SCH ×2 (10:05→20:15)
[2019-12-25] MEDS: Metoprolol 100 MG TABLET PO SCH ×2 (10:05→20:45)
[2019-12-25] MEDS: Insulin LISPRO 300 UNITS/3 ML VIAL SQ SCH ×7 (10:06→20:46)
[2019-12-25 18:22] LABS: Bacteria,Urine Few per hpf (None-Few); Bilirubin,Urine Negative (Negative); Blood,Urine Negative (Negative); Clarity,Urine Clear (Clear); Color,Urine Light-Yellow (Yellow); Glucose,Urine (UA) >=1000 mg/dL (Normal); Ketones,Urine Negative (Negative); Leukocyte Esterase,Urine Negative (Negative); Nitrite,Urine Negative (Negative); PH,Urine 6.5 pH Units (5.0-8.0); Protein,Urine 30 mg/dL (Neg-Trace); RBC,Urine 0-3 per hpf (0-3); Squamous Epithelial Cell,Urine Few per hpf (None-Few); Urobilinogen,Urine Normal (Normal); WBC,Urine 0-3 per hpf (0-3)
[2019-12-26] MEDS: (Suboxone 8 Mg-2 Mg) SL SCH ×2 (00:39→08:59)
[2019-12-26 03:06] LABS: Basophils % 0.6 %; Eosinophils # 0.3 K/mcL (0.0-0.6); Eosinophils % 4.3 %; Hematocrit 32.9 % (35.3-44.9); Hemoglobin 10.6 g/dL (11.5-15.4); Lymphocytes # 2.6 K/mcL (0.6-4.6); Mean Corpuscular HGB Conc 32.2 g/dL (31.6-35.5); Mean Corpuscular Hemoglobin 28.5 pg (28.0-33.3); Mean Corpuscular Volume 88.4 fL (83.0-100.0); Mean Platelet Volume 10.5 fL (9.4-12.4); Monocytes # 0.5 K/mcL (0.0-1.3); Monocytes % 6.3 %; Neutrophils # 3.7 K/mcL (1.6-8.9); Platelet Count 119 K/mcL (140-400); Red Blood Count 3.72 M/mcL (3.82-4.97); Red Cell Distribution Width 13.1 % (11.5-14.5); Segmented Neutrophils % 51.8 %; White Blood Count 7.2 K/mcL (4.3-11.1)
[2019-12-26 03:25] LABS: Calcium 8.6 mg/dL (8.6-10.3); Magnesium 1.8 mg/dL (1.6-2.6); Phosphorous 2.8 mg/dL (2.7-4.5); Potassium 3.4 mEq/L (3.5-5.1)
[2019-12-26 07:20] VITALS: BP 147/85
[2019-12-26] MEDS: Metoprolol 100 MG TABLET PO SCH (08:23)
[2019-12-26] MEDS: Gabapentin 400 MG CAPSULE PO SCH (08:23)
[2019-12-26] MEDS: hydrALAZINE 25 MG TABLET PO SCH (08:23)
[2019-12-26] MEDS: FLUoxetine 20 MG CAPSULE PO SCH (08:23)
[2019-12-26] MEDS: Insulin LISPRO 300 UNITS/3 ML VIAL SQ SCH ×2 (08:32→08:59)
[2019-12-26] MEDS: *HR* SitaGLIPtin 25 MG TABLET PO SCH (08:33)
[2019-12-26] MEDS: Insulin DETEMIR 100 UNIT/ML X5UNITS SQ SCH (09:40)
== END 2019-12-26 10:06 | disposition home or self-care (01) | DRG 420 ==
LOC: CDU → 2NNU 12-23 02:01 → 2ANU 12-23 18:42
PROVIDERS: ADMIT Student in an Organized Health Care Education/Training Program; ATTEND Student in an Organized Health Care Education/Training Program

== ENCOUNTER 2020-08-01 22:02 | Observation (INO) ==
[2020-08-02] MEDS ORDERED: Ondansetron 4 MG/2 ML VIAL IVP PRN (00:08)
[2020-08-02] MEDS ORDERED: Naloxone 0.4 MG/ML INJ IVP PRN (00:08)
[2020-08-02] MEDS ORDERED: *HR* Dextrose 50 % in Water (Vial) 50 ML VIAL IVP PRN ×2 (00:10→11:22)
[2020-08-02] MEDS ORDERED: Potassium Chloride 40 MEQ, Lidocaine 1% 2 ML in 0.9 % Sodium Chloride 500 ML IVPB ONE (00:30)
[2020-08-02] MEDS: Ringers Solution, Lactated 1,000 ML IVC SCH ×3 (00:44→18:39)
[2020-08-02 02:26] LABS: Basophils % 0.4 %; Eosinophils % 0.1 %; Hematocrit 34.1 % (35.3-44.9); Hemoglobin 11.5 g/dL (11.5-15.4); Immature Granulocytes % 0.8 % (0-4); Lymphocytes # 2.2 K/mcL (0.6-4.6); Lymphocytes % 22.1 %; Mean Corpuscular HGB Conc 33.7 g/dL (31.6-35.5); Mean Corpuscular Hemoglobin 28.7 pg (28.0-33.3); Mean Platelet Volume 9.9 fL (9.4-12.4); Monocytes # 0.6 K/mcL (0.0-1.3); Monocytes % 5.5 %; Neutrophils # 7.2 K/mcL (1.6-8.9); Platelet Count 226 K/mcL (140-400); Red Blood Count 4.01 M/mcL (3.82-4.97); Red Cell Distribution Width 12.6 % (11.5-14.5); Segmented Neutrophils % 71.1 %; White Blood Count 10.1 K/mcL (4.3-11.1)
[2020-08-02 02:33] LABS: INR 1.2; Prothrombin Time 14.1 Seconds (9.4-12.1)
[2020-08-02 02:44] LABS: Beta-Hydroxybutyric Acid 0.15 mmol/L (0.02-0.27)
[2020-08-02 03:01] LABS: Albumin 3.9 g/dL (3.5-5.7); Albumin/Globulin Ratio 1.3 (1.1-2.2); Bilirubin,Total 0.3 mg/dL (0.3-1.0); Calcium 9.1 mg/dL (8.6-10.3); Globulin 2.9 g/dL (2.4-3.5); Magnesium 1.6 mg/dL (1.6-2.6); Total Protein 6.8 g/dL (6.4-8.9)
[2020-08-02 03:25] LABS: Hepatitis B Surface Antigen Nonreactive (Nonreactive)
[2020-08-02 03:54] LABS: Hepatitis C Virus Antibody Nonreactive (Nonreactive)
[2020-08-02 03:55] LABS: Hepatitis B Core IgM Nonreactive (Nonreactive)
[2020-08-02 03:57] LABS: Hepatitis A Antibody IgM Nonreactive (Nonreactive)
[2020-08-02] MEDS: Acetaminophen 325 MG TABLET PO PRN (09:51)
[2020-08-02 11:05] LABS: Lipase 1126 Units/L (11-82); Triglycerides 698 mg/dL (< 150)
[2020-08-02] MEDS ORDERED: Ringers Solution, Lactated 1,000 ML IVC SCH (11:09)
[2020-08-02] MEDS ORDERED: *HR* Labetalol 20 MG/4 ML SYRINGE IVP ONE (11:52)
[2020-08-02] MEDS ORDERED: traZODone 50 MG TABLET PO PRN (11:52)
[2020-08-02] MEDS: Gabapentin 400 MG CAPSULE PO SCH ×2 (14:03→21:31)
[2020-08-02] MEDS: hydrALAZINE 25 MG TABLET PO SCH ×2 (14:03→21:31)
[2020-08-02] MEDS: *HR* Dextrose 50 % in Water (Vial) 50 ML VIAL IVP PRN ×3 (14:06→16:16)
[2020-08-02 16:01] LABS: Lipase 1389 Units/L (11-82); Triglycerides 598 mg/dL (< 150)
[2020-08-02] MEDS: gemfibroziL 600 MG TABLET PO SCH (16:16)
[2020-08-02] MEDS ORDERED: D5% in Lactated Ringers 1,000 ML IVC SCH (16:30)
[2020-08-02] MEDS: Insulin DETEMIR 100 UNIT/ML X5UNITS SUBQ SCH (17:17)
[2020-08-02] MEDS: Insulin LISPRO 300 UNITS/3 ML VIAL SUBQ SCH ×2 (17:18→21:32)
[2020-08-02] MEDS ORDERED: risperiDONE 1 MG TABLET PO SCH (21:00)
[2020-08-02] MEDS: *HR* Heparin 5,000 UNIT/ML VIAL SQ SCH (21:31)
[2020-08-02] MEDS: Metoprolol 100 MG TABLET PO SCH (21:31)
[2020-08-02] MEDS: FORMOTEROL FUM AER SCH (21:50)
[2020-08-02] MEDS: GLYCOPYRROLATE AER SCH (21:50)
[2020-08-02] MEDS: (Buprenorphine Hcl/Naloxone Hcl [Suboxone 8 Mg-2 Mg]) SL SCH (21:50)
[2020-08-03] MEDS: Ringers Solution, Lactated 1,000 ML IVC SCH (01:08)
[2020-08-03 04:04] LABS: Hematocrit 30.9 % (35.3-44.9); Hemoglobin 10.2 g/dL (11.5-15.4); Mean Corpuscular Hemoglobin 28.3 pg (28.0-33.3); Mean Corpuscular Volume 85.6 fL (83.0-100.0); Mean Platelet Volume 9.8 fL (9.4-12.4); Platelet Count 168 K/mcL (140-400); Red Blood Count 3.61 M/mcL (3.82-4.97); Red Cell Distribution Width 12.7 % (11.5-14.5); White Blood Count 7.9 K/mcL (4.3-11.1)
[2020-08-03 04:05] LABS: BUN/Creatinine Ratio 15 (6-26); Blood Urea Nitrogen 15 mg/dL (6-20); Calcium 8.3 mg/dL (8.6-10.3); Carbon Dioxide 25 mEq/L (23-29); Chloride 104 mEq/L (98-107); Glucose 312 mg/dL (70-105); Osmolality,Calculated 297 (280-300); Potassium 3.3 mEq/L (3.5-5.1); Sodium 137 mEq/L (136-145); Triglycerides 573 mg/dL (< 150); eGFR For African Americans > 60 (> 60); eGFR For Non-African Americans 56 (> 60)
[2020-08-03] MEDS: *HR* Heparin 5,000 UNIT/ML VIAL SQ SCH ×3 (05:09→21:54)
[2020-08-03] MEDS: Insulin DETEMIR 100 UNIT/ML X5UNITS SUBQ SCH ×2 (07:32→21:53)
[2020-08-03] MEDS: Insulin LISPRO 300 UNITS/3 ML VIAL SUBQ SCH ×6 (07:32→21:55)
[2020-08-03] MEDS: hydrALAZINE 25 MG TABLET PO SCH ×3 (07:33→21:52)
[2020-08-03] MEDS: gemfibroziL 600 MG TABLET PO SCH ×2 (07:33→16:07)
[2020-08-03] MEDS: Metoprolol 100 MG TABLET PO SCH ×2 (07:33→21:52)
[2020-08-03] MEDS: Gabapentin 400 MG CAPSULE PO SCH ×3 (07:33→21:52)
[2020-08-03 07:57] LABS: Magnesium 1.6 mg/dL (1.6-2.6)
[2020-08-03 08:38] LABS: Bacteria,Urine Few per hpf (None-Few); Bilirubin,Urine Negative (Negative); Blood,Urine Negative (Negative); Clarity,Urine Clear (Clear); Color,Urine Light-Yellow (Yellow); Glucose,Urine (UA) >=1000 mg/dL (Normal); Ketones,Urine Negative (Negative); Leukocyte Esterase,Urine Negative (Negative); Mucus,Urine Few per lpf (None-Few); Nitrite,Urine Negative (Negative); Protein,Urine 30 mg/dL (Neg-Trace); Specific Gravity,Urine 1.017 (1.010-1.025); Squamous Epithelial Cell,Urine Few per hpf (None-Few); Transitional Epi Cells,Urine Few per hpf (None-Few); Urobilinogen,Urine Normal (Normal); WBC,Urine 0-3 per hpf (0-3)
[2020-08-03] MEDS ORDERED: Insulin DETEMIR 100 UNIT/ML X5UNITS SUBQ ONE (09:07)
[2020-08-03] MEDS: FORMOTEROL FUM AER SCH ×2 (09:15→21:54)
[2020-08-03] MEDS: (Buprenorphine Hcl/Naloxone Hcl [Suboxone 8 Mg-2 Mg]) SL SCH ×2 (09:15→21:53)
[2020-08-03] MEDS: GLYCOPYRROLATE AER SCH ×2 (09:15→21:54)
[2020-08-03] MEDS ORDERED: MOM Conc 10 ML UD.LIQ PO ONE (10:30)
[2020-08-03] MEDS: lisinopriL 20 MG TABLET PO SCH (11:39)
[2020-08-03] MEDS ORDERED: *HR* Dextrose 50 % in Water (Vial) 50 ML VIAL IVP PRN (12:11)
[2020-08-03] MEDS ORDERED: D5% in Water 1,000 ML IVC PRN (12:11)
[2020-08-03] MEDS ORDERED: Dextrose Gel 15 GM/37.5 ML TUBE PO PRN ×2 (12:11)
[2020-08-03] MEDS: Acetaminophen 325 MG TABLET PO PRN (14:18)
[2020-08-03] MEDS: risperiDONE 1 MG TABLET PO SCH (21:52)
[2020-08-04 04:11] LABS: Hematocrit 29.5 % (35.3-44.9); Hemoglobin 9.8 g/dL (11.5-15.4); Mean Corpuscular HGB Conc 33.2 g/dL (31.6-35.5); Mean Corpuscular Hemoglobin 28.7 pg (28.0-33.3); Mean Corpuscular Volume 86.5 fL (83.0-100.0); Mean Platelet Volume 10.3 fL (9.4-12.4); Platelet Count 145 K/mcL (140-400); Red Blood Count 3.41 M/mcL (3.82-4.97); Red Cell Distribution Width 12.9 % (11.5-14.5)
[2020-08-04 04:20] LABS: BUN/Creatinine Ratio 16 (6-26); Blood Urea Nitrogen 17 mg/dL (6-20); Calcium 8.3 mg/dL (8.6-10.3); Carbon Dioxide 23 mEq/L (23-29); Chloride 105 mEq/L (98-107); Glucose 289 mg/dL (70-105); Osmolality,Calculated 296 (280-300); Potassium 3.8 mEq/L (3.5-5.1); Sodium 137 mEq/L (136-145); eGFR For African Americans > 60 (> 60); eGFR For Non-African Americans 54 (> 60)
[2020-08-04] MEDS: *HR* Heparin 5,000 UNIT/ML VIAL SQ SCH (05:07)
[2020-08-04 06:28] VITALS: BP 120/83
[2020-08-04] MEDS ORDERED: Insulin LISPRO 300 UNITS/3 ML VIAL SUBQ SCH (08:00)
[2020-08-04] MEDS: hydrALAZINE 25 MG TABLET PO SCH (08:47)
[2020-08-04] MEDS: lisinopriL 20 MG TABLET PO SCH (08:47)
[2020-08-04] MEDS: gemfibroziL 600 MG TABLET PO SCH (08:47)
[2020-08-04] MEDS: Metoprolol 100 MG TABLET PO SCH (08:47)
[2020-08-04] MEDS: risperiDONE 1 MG TABLET PO SCH (08:48)
[2020-08-04] MEDS: Insulin LISPRO 300 UNITS/3 ML VIAL SUBQ SCH (08:48)
[2020-08-04] MEDS: Gabapentin 400 MG CAPSULE PO SCH (08:48)
[2020-08-04] MEDS: Insulin DETEMIR 100 UNIT/ML X5UNITS SUBQ SCH (08:48)
[2020-08-04] MEDS: (Buprenorphine Hcl/Naloxone Hcl [Suboxone 8 Mg-2 Mg]) SL SCH (08:49)
[2020-08-04] MEDS: GLYCOPYRROLATE AER SCH (08:49)
[2020-08-04] MEDS: FORMOTEROL FUM AER SCH (08:49)
[2020-08-04] MEDS ORDERED: FLUoxetine 20 MG CAPSULE PO SCH (09:00)
== END 2020-08-04 11:35 | disposition home or self-care (01) ==
LOC: 2ANU → SUATTDRO 23:47
PROVIDERS: ADMIT Internal Medicine; ATTEND Student in an Organized Health Care Education/Training Program

== ENCOUNTER 2020-09-24 23:41 | Observation (INO) ==
[2020-09-25] MEDS ORDERED: 0.9 % Sodium Chloride 1,000 ML ONE (01:13)
[2020-09-25] MEDS ORDERED: *HR* FentaNYL (PF) 100 MCG/2 ML VIAL IVP ONE (01:19)
[2020-09-25] MEDS ORDERED: Ondansetron 4 MG/2 ML VIAL IVP ONE (01:19)
[2020-09-25 01:33] LABS: Basophils # 0.1 K/mcL (0.0-0.2); Basophils % 0.7 %; Eosinophils # 0.5 K/mcL (0.0-0.6); Eosinophils % 4.8 %; Hematocrit 32.3 % (35.3-44.9); Hemoglobin 10.3 g/dL (11.5-15.4); Immature Granulocytes % 1.7 % (0-4); Lymphocytes # 2.6 K/mcL (0.6-4.6); Lymphocytes % 26.8 %; Mean Corpuscular HGB Conc 31.9 g/dL (31.6-35.5); Mean Corpuscular Hemoglobin 28.2 pg (28.0-33.3); Mean Corpuscular Volume 88.5 fL (83.0-100.0); Monocytes # 0.6 K/mcL (0.0-1.3); Monocytes % 5.8 %; Neutrophils # 5.8 K/mcL (1.6-8.9); Platelet Count 230 K/mcL (140-400); Red Blood Count 3.65 M/mcL (3.82-4.97); Segmented Neutrophils % 60.2 %; White Blood Count 9.6 K/mcL (4.3-11.1)
[2020-09-25] MEDS: 0.9 % Sodium Chloride 1,000 ML IVC SCH ×2 (01:36→02:19)
[2020-09-25 01:40] LABS: VBG HCO3 27 mEq/L (21-27); VBG PCO2 51 mmHg (41-51); VBG PH 7.33 pH Units (7.32-7.42); VBG PO2 98 mmHg (25-50)
[2020-09-25 02:13] LABS: Albumin 3.8 g/dL (3.5-5.7); Albumin/Globulin Ratio 1.2 (1.1-2.2); Bilirubin,Total 0.3 mg/dL (0.3-1.0); Globulin 3.2 g/dL (2.4-3.5); Magnesium 1.7 mg/dL (1.6-2.6); Potassium 4.2 mEq/L (3.5-5.1)
[2020-09-25] MEDS ORDERED: Insulin Human Regular 20 UNIT in 0.9 % Sodium Chloride 10 ML IV ONE (02:14)
[2020-09-25] MEDS ORDERED: *HR* Dextrose 50 % in Water (Vial) 50 ML VIAL IVP PRN ×4 (04:27→13:49)
[2020-09-25 05:06] LABS: Bacteria,Urine Few per hpf (None-Few); Bilirubin,Urine Negative (Negative); Blood,Urine Negative (Negative); Clarity,Urine Clear (Clear); Color,Urine Colorless (Yellow); Glucose,Urine (UA) >=1000 mg/dL (Normal); Ketones,Urine Negative (Negative); Leukocyte Esterase,Urine Negative (Negative); Nitrite,Urine Negative (Negative); PH,Urine 6.5 pH Units (5.0-8.0); Protein,Urine Trace mg/dL (Neg-Trace); RBC,Urine 0-3 per hpf (0-3); Squamous Epithelial Cell,Urine Few per hpf (None-Few); Urobilinogen,Urine Normal (Normal); WBC,Urine 0-3 per hpf (0-3)
[2020-09-25 05:15] LABS: Calcium 8.6 mg/dL (8.6-10.3); Potassium 4.9 mEq/L (3.5-5.1)
[2020-09-25] MEDS ORDERED: Insulin Regular, Human 100 UNIT/ML IV PRN ×3 (05:46→13:49)
[2020-09-25] MEDS ORDERED: D5% in 0.45% NACL w KCl 20 MEQ/1,000 ML MLS IVC PRN (05:46)
[2020-09-25] MEDS ORDERED: D5% in 0.45% NACL 1,000 ML IVC PRN (05:46)
[2020-09-25] MEDS ORDERED: Acetaminophen 325 MG TABLET PO PRN (05:55)
[2020-09-25] MEDS ORDERED: Ondansetron 4 MG/2 ML VIAL IVP PRN (05:55)
[2020-09-25] MEDS ORDERED: Naloxone 0.4 MG/ML INJ IVP PRN (05:55)
[2020-09-25] MEDS ORDERED: Melatonin 3 MG TABLET PO PRN (05:55)
[2020-09-25] MEDS ORDERED: 0.45 % Sodium Chloride w/KCl 20 MEQ/1,000 ML MLS IVC PRN ×2 (06:00)
[2020-09-25] MEDS ORDERED: 0.9 % Sodium Chloride 1,000 ML IVC PRN (06:00)
[2020-09-25] MEDS: 0.9 % Sodium Chloride w KCl 20 MEQ/1,000 ML MLS IVC SCH ×2 (06:38→16:14)
[2020-09-25 09:05] LABS: Estimated Average Glucose 303 mg/dl; Hemoglobin A1C 12.2 %
[2020-09-25] MEDS: 0.45 % Sodium Chloride w/KCl 20 MEQ/1,000 ML MLS IVC SCH ×2 (09:16→16:15)
[2020-09-25 09:18] LABS: Chol/HDL Ratio 6.2 (0-4.9); Cholesterol 160 mg/dL (< 200); HDL Cholesterol 26 mg/dL (40-59); Triglycerides 624 mg/dL (< 150)
[2020-09-25 09:19] LABS: Calcium 8.7 mg/dL (8.6-10.3); Potassium 3.7 mEq/L (3.5-5.1)
[2020-09-25 13:15] LABS: Calcium 8.8 mg/dL (8.6-10.3); Potassium 3.6 mEq/L (3.5-5.1)
[2020-09-25] MEDS ORDERED: Insulin DETEMIR 100 UNIT/ML X5UNITS SUBQ ONE (13:37)
[2020-09-25] MEDS ORDERED: Dextrose Gel 15 GM/37.5 ML TUBE PO PRN ×2 (13:38)
[2020-09-25] MEDS ORDERED: D5% in 0.45% NACL w KCl 20 MEQ/1,000 ML MLS IVC SCH (14:00)
[2020-09-25] MEDS ORDERED: traZODone 50 MG TABLET PO PRN (14:28)
[2020-09-25] MEDS ORDERED: Fluticasone Propionate Nasal 50 MCG/SPRAY BOTTLE NS PRN (14:28)
[2020-09-25] MEDS ORDERED: Nitroglycerin 0.4 MG TAB.SUBL SL PRN (14:28)
[2020-09-25] MEDS ORDERED: Isovue-370 500 ML BOTTLE IVP ONE (14:29)
[2020-09-25] MEDS ORDERED: Isovue-370 500 ML BOTTLE PO ONE (15:18)
[2020-09-25] MEDS: Gabapentin 400 MG CAPSULE PO SCH ×2 (16:21→21:57)
[2020-09-25] MEDS: hydrALAZINE 25 MG TABLET PO SCH ×2 (16:21→22:02)
[2020-09-25] MEDS: Insulin LISPRO 300 UNITS/3 ML VIAL SUBQ SCH ×2 (16:23→17:21)
[2020-09-25] MEDS ORDERED: NON-FORMULARY MEDICATION 1 EACH EACH (Insulin Aspart [Novolog Flexpen] 100 UNIT/ML Insuln. SQ SCH (17:00)
[2020-09-25 17:48] LABS: Potassium 3.7 mEq/L (3.5-5.1)
[2020-09-25] MEDS ORDERED: Insulin DETEMIR 100 UNIT/ML X5UNITS SUBQ SCH (21:00)
[2020-09-25] MEDS: gemfibroziL 600 MG TABLET PO SCH (21:56)
[2020-09-25] MEDS: Metoprolol 100 MG TABLET PO SCH (21:56)
[2020-09-25] MEDS: DilTIAZem SR (12hr) 60 MG CAP.ER.12H PO SCH (21:57)
[2020-09-25] MEDS: risperiDONE 1 MG TABLET PO SCH (21:58)
[2020-09-25] MEDS: Insulin DETEMIR 100 UNIT/ML X5UNITS SUBQ SCH (21:58)
[2020-09-25] MEDS: (Buprenorphine Hcl/Naloxone Hcl [Suboxone 8 Mg-2 Mg SL SL SCH (21:59)
[2020-09-25] MEDS: Triamcinolone Acet 0.1% CRM 15 GM TUBE TP SCH (21:59)
[2020-09-26 01:30] LABS: Red Blood Count 3.31 M/mcL (3.82-4.97); Red Cell Distribution Width 13.1 % (11.5-14.5)
[2020-09-26 01:32] LABS: Basophils # 0.1 K/mcL (0.0-0.2); Basophils % 0.6 %; Eosinophils # 0.6 K/mcL (0.0-0.6); Eosinophils % 7.2 %; Hematocrit 29.2 % (35.3-44.9); Hemoglobin 9.4 g/dL (11.5-15.4); Immature Granulocytes % 1.2 % (0-4); Immature Platelets 2.7 % (1.1-6.1); Lymphocytes # 2.2 K/mcL (0.6-4.6); Lymphocytes % 26.1 %; Mean Corpuscular HGB Conc 32.2 g/dL (31.6-35.5); Mean Corpuscular Hemoglobin 28.4 pg (28.0-33.3); Mean Corpuscular Volume 88.2 fL (83.0-100.0); Monocytes # 0.5 K/mcL (0.0-1.3); Neutrophils # 4.9 K/mcL (1.6-8.9); Platelet Count 207 K/mcL (140-400); Segmented Neutrophils % 58.9 %; White Blood Count 8.3 K/mcL (4.3-11.1)
[2020-09-26 01:48] LABS: Calcium 8.8 mg/dL (8.6-10.3); Potassium 4.3 mEq/L (3.5-5.1)
[2020-09-26 01:50] LABS: Magnesium 1.8 mg/dL (1.6-2.6); Phosphorous 3.2 mg/dL (2.7-4.5)
[2020-09-26 01:51] LABS: Platelet Estimate Normal (Normal)
[2020-09-26 06:25] LABS: Potassium 4.2 mEq/L (3.5-5.1)
[2020-09-26] MEDS: Cholecalciferol (D-3) 1,000 UNIT (25MCG) TABLET PO SCH (08:35)
[2020-09-26] MEDS: Gabapentin 400 MG CAPSULE PO SCH ×3 (08:35→20:15)
[2020-09-26] MEDS: FLUoxetine 20 MG CAPSULE PO SCH (08:35)
[2020-09-26] MEDS: Metoprolol 100 MG TABLET PO SCH ×2 (08:35→20:15)
[2020-09-26] MEDS: hydrALAZINE 25 MG TABLET PO SCH ×3 (08:36→20:15)
[2020-09-26] MEDS: risperiDONE 1 MG TABLET PO SCH ×2 (08:36→20:15)
[2020-09-26] MEDS: Insulin LISPRO 300 UNITS/3 ML VIAL SUBQ SCH ×6 (08:46→17:09)
[2020-09-26] MEDS: (Buprenorphine Hcl/Naloxone Hcl [Suboxone 8 Mg-2 Mg SL SL SCH (09:20)
[2020-09-26] MEDS: DilTIAZem SR (12hr) 60 MG CAP.ER.12H PO SCH ×2 (09:47→20:15)
[2020-09-26] MEDS: gemfibroziL 600 MG TABLET PO SCH (09:47)
[2020-09-26] MEDS: Insulin DETEMIR 100 UNIT/ML X5UNITS SUBQ SCH ×2 (09:48→20:16)
[2020-09-26] MEDS: Triamcinolone Acet 0.1% CRM 15 GM TUBE TP SCH ×2 (09:49→20:16)
[2020-09-26 12:03] LABS: Potassium 4.6 mEq/L (3.5-5.1)
[2020-09-26] MEDS ORDERED: Insulin Regular, Human 100 UNIT/ML IV ONE (12:29)
[2020-09-26] MEDS ORDERED: Insulin Human Regular 10 UNIT in 0.9 % Sodium Chloride 10 ML IV ONE (12:35)
[2020-09-26 14:02] LABS: Calcium 9.4 mg/dL (8.6-10.3); Potassium 4.1 mEq/L (3.5-5.1)
[2020-09-26 17:54] LABS: Calcium 9.4 mg/dL (8.6-10.3); Potassium 4.3 mEq/L (3.5-5.1)
[2020-09-26] MEDS ORDERED: Ipratropium/Albuterol Neb 3 ML IH PRN (19:21)
[2020-09-26] MEDS: *HR* Heparin 5,000 UNIT/ML VIAL SQ SCH (20:15)
[2020-09-26] MEDS: *HR* Buprenorphine HCl 8 MG TAB.SUBL SL SCH (20:32)
[2020-09-27] MEDS: *HR* Heparin 5,000 UNIT/ML VIAL SQ SCH (05:40)
[2020-09-27 08:02] LABS: Basophils # 0.1 K/mcL (0.0-0.2); Basophils % 0.9 %; Eosinophils # 0.4 K/mcL (0.0-0.6); Eosinophils % 7.6 %; Hematocrit 28.4 % (35.3-44.9); Hemoglobin 9.4 g/dL (11.5-15.4); Immature Granulocytes % 2.2 % (0-4); Lymphocytes # 2.3 K/mcL (0.6-4.6); Lymphocytes % 42.4 %; Mean Corpuscular HGB Conc 33.1 g/dL (31.6-35.5); Mean Corpuscular Hemoglobin 29.6 pg (28.0-33.3); Mean Corpuscular Volume 89.3 fL (83.0-100.0); Mean Platelet Volume 10.3 fL (9.4-12.4); Monocytes # 0.3 K/mcL (0.0-1.3); Monocytes % 6.3 %; Neutrophils # 2.2 K/mcL (1.6-8.9); Platelet Count 197 K/mcL (140-400); Red Blood Count 3.18 M/mcL (3.82-4.97); Segmented Neutrophils % 40.6 %; White Blood Count 5.4 K/mcL (4.3-11.1)
[2020-09-27 08:32] LABS: Albumin 3.6 g/dL (3.5-5.7); Albumin/Globulin Ratio 1.3 (1.1-2.2); Bilirubin,Total 0.2 mg/dL (0.3-1.0); Globulin 2.8 g/dL (2.4-3.5); Magnesium 1.9 mg/dL (1.6-2.6); Phosphorous 3.1 mg/dL (2.7-4.5); Potassium 4.2 mEq/L (3.5-5.1); Total Protein 6.4 g/dL (6.4-8.9)
[2020-09-27] MEDS: DilTIAZem SR (12hr) 60 MG CAP.ER.12H PO SCH (08:32)
[2020-09-27] MEDS: hydrALAZINE 25 MG TABLET PO SCH (08:32)
[2020-09-27] MEDS: Gabapentin 400 MG CAPSULE PO SCH (08:32)
[2020-09-27] MEDS: Metoprolol 100 MG TABLET PO SCH (08:32)
[2020-09-27] MEDS: *HR* Buprenorphine HCl 8 MG TAB.SUBL SL SCH (08:32)
[2020-09-27] MEDS: FLUoxetine 20 MG CAPSULE PO SCH (08:32)
[2020-09-27] MEDS: Cholecalciferol (D-3) 1,000 UNIT (25MCG) TABLET PO SCH (08:32)
[2020-09-27] MEDS: risperiDONE 1 MG TABLET PO SCH (08:32)
[2020-09-27] MEDS: Insulin DETEMIR 100 UNIT/ML X5UNITS SUBQ SCH (08:34)
[2020-09-27] MEDS: Insulin LISPRO 300 UNITS/3 ML VIAL SUBQ SCH ×4 (08:34→11:38)
[2020-09-27] MEDS: Triamcinolone Acet 0.1% CRM 15 GM TUBE TP SCH (08:35)
[2020-09-27] MEDS ORDERED: Fenofibrate 54 MG TABLET PO SCH (09:00)
[2020-09-27 11:24] VITALS: BP 111/89
== END 2020-09-27 14:15 | disposition home or self-care (01) ==
LOC: ICNU 23:41 → EMEROOARM 23:41 → SUATTDRO 09-25 05:15 → ICNU 09-25 05:50 → 2NENU 09-25 09:43
PROVIDERS: ADMIT Internal Medicine; ATTEND Student in an Organized Health Care Education/Training Program